=== PATIENT | male | born 1960 | race Asian ===

== ENCOUNTER 2021-07-27 19:05 | Emergency (ER) | payer OTHER ==
[~2021-07-27] VITALS: Ht 177.8 cm; Wt 81.0 kg
[2021-07-27] MEDS ORDERED: SODIUM CHLORIDE 0.9% 1,000 ML IV ONE (21:00)
[2021-07-27 22:36] VITALS: BP 142/88
== END 2021-07-27 22:38 | disposition home or self-care (01) ==
LOC: ER 19:05
DX: T40.5X1A Poisoning by cocaine, accidental (unintentional), initial encounter (principal); Y92.89 Other specified places as the place of occurrence of the external cause
CPT/HCPCS: 93005; 96360; 99283; J7030

== ENCOUNTER 2022-06-01 19:26 | Emergency (ER) | payer OTHER ==
[~2022-06-01] VITALS: Ht 172.7 cm; Wt 68.0 kg
[2022-06-01 19:30] VITALS: BP 182/88
[2022-06-01] MEDS ORDERED: NALO4SPR BOTHNSTRLS (20:21)
== END 2022-06-01 20:42 | disposition home or self-care (01) ==
LOC: ER 19:32
DX: T40.5X1A Poisoning by cocaine, accidental (unintentional), initial encounter (principal); Y92.89 Other specified places as the place of occurrence of the external cause
CPT/HCPCS: 99283